=== PATIENT | male | born 1955 | race African-American/Black ===

== ENCOUNTER 2017-05-29 18:47 | Inpatient (IN) ==
[2017-05-29 20:15] LABS: Basophils % 0.5 % (0.0-0.8); Eosinophils # 0.1 10*3/uL (0.0-0.87); Eosinophils % 1.3 % (0.00-10.9); Hematocrit 47.1 VOL% (42.0-52.0); Hemoglobin 14.9 GM/DL (14.0-18.0); Immature Granulocytes % 0.8 %; Immature Granulocytes Absolute 0.07 #; Lymphocytes # 0.5 10*3/uL (1.4-4.0); Lymphocytes % 5.6 % (21.2-54.2); Mean Corpuscular HGB Conc 31.6 GM/DL (32-36); Mean Corpuscular Hemoglobin 27 PG (27-34); Mean Corpuscular Volume 86.7 FL (87-102); Mean Platelet Volume 10.4 FL (9.6-12.0); Monocytes # 0.8 10*3/uL (0.11-0.8); Monocytes % 9.7 % (1.7-12.7); Neutrophils # 7.1 10*3/uL (1.4-7.4); Neutrophils % 82.1 % (38.7-73.9); Platelet Count 205 T/CUMM (130-400); Red Blood Count 5.43 MC/CUMM (3.8-5.5); Red Cell Distribution Width 15.5 % (9.3-17.3); White Blood Count 8.6 T/CUMM (4-12)
[2017-05-29 20:21] LABS: PT Patient Result 10.9 SECS; Partial Thromboplastin Time 27.5 SECS (0-40)
[2017-05-29] MEDS ORDERED: ALBUTEROL 2.5 MG/3 ML NEB RESP TX STA (20:25)
[2017-05-29 20:28] LABS: Albumin 3.6 G/DL (3.4-5.0); Bilirubin,Total 0.5 MG/DL (0.2-1.0); Calcium 8.6 MG/DL (8.5-10.1); Potassium 4.8 MMOL/L (3.5-5.1); Total Protein 7.8 G/DL (6.4-8.3); Troponin I Only < 0.015 NG/ML (0.00-0.045)
[2017-05-29] MEDS ORDERED: ALBUTEROL 2.5 MG/3 ML NEB RESP TX ONE (20:41)
[2017-05-29] MEDS ORDERED: methylPREDNISolone SOD SUC 125 MG/2 ML VIAL IV STA (23:36)
[2017-05-29] MEDS ORDERED: methylPREDNISolone SOD SUC 125 MG/2 ML VIAL ONE (23:44)
[2017-05-29] MEDS ORDERED: AZITHROMYCIN INJ 500 MG in SODIUM CHLORIDE 0.9% 250 ML IV STA (23:45)
[2017-05-29] MEDS ORDERED: cefTRIAXone 1,000 MG in SODIUM CHLORIDE 0.9% 100 ML IV STA (23:45)
[2017-05-29] MEDS ORDERED: cefTRIAXone 1,000 MG VIAL ONE (23:49)
[2017-05-29] MEDS ORDERED: AZITHROMYCIN 500 MG VIAL IV ONE (23:57)
[2017-05-30] MEDS ORDERED: ALBUTEROL 2.5 MG/3 ML NEB RESP TX PRN (02:36)
[2017-05-30] MEDS ORDERED: traMADol 50 MG TABLET PO PRN (04:54)
[2017-05-30] MEDS ORDERED: FUROSEMIDE 40 MG TABLET PO PRN (04:54)
[2017-05-30] MEDS ORDERED: POTASSIUM CHLORIDE 20 MEQ TABLET PO PRN (04:54)
[2017-05-30] MEDS ORDERED: ACETAMINOPHEN 325 MG TABLET PO PRN (04:54)
[2017-05-30] MEDS ORDERED: COLCHICINE 0.6 MG TABLET PO PRN (04:54)
[2017-05-30] MEDS: ENOXAPARIN 40 MG/0.4 ML SYRINGE SUBCUT SCH (06:41)
[2017-05-30] MEDS: ALBUTEROL/IPRATROPIUM 3 ML NEB RESP TX SCH ×3 (07:25→20:02)
[2017-05-30] MEDS: DILTIAZEM CD 240 MG CAPSULE PO SCH (09:20)
[2017-05-30] MEDS: methylPREDNISolone SOD SUC 125 MG/2 ML VIAL IV SCH ×3 (09:20→21:45)
[2017-05-30] MEDS: PANTOPRAZOLE 40 MG TABLET PO SCH (09:20)
[2017-05-30] MEDS: BUDESONIDE/FORMOTEROL 160-4.5 INHALER 6 GM INH SCH ×2 (09:25→21:45)
[2017-05-30] MEDS: TAMSULOSIN 0.4 MG CAPSULE PO SCH (17:20)
[2017-05-30] MEDS: MONTELUKAST 10 MG TABLET PO SCH (21:46)
[2017-05-30] MEDS ORDERED: AZITHROMYCIN INJ 500 MG in SODIUM CHLORIDE 0.9% 250 ML IV SCH (22:00)
[2017-05-31] MEDS: cefTRIAXone 1,000 MG in SYRINGE 1 EACH IV SCH ×2 (00:07→21:29)
[2017-05-31] MEDS: ALBUTEROL/IPRATROPIUM 3 ML NEB RESP TX SCH ×4 (01:12→20:49)
[2017-05-31] MEDS: methylPREDNISolone SOD SUC 125 MG/2 ML VIAL IV SCH ×3 (05:07→18:06)
[2017-05-31] MEDS: ENOXAPARIN 40 MG/0.4 ML SYRINGE SUBCUT SCH (05:08)
[2017-05-31 06:42] LABS: Basophils % 0.1 % (0.0-0.8); Hematocrit 45.3 VOL% (42.0-52.0); Hemoglobin 14.2 GM/DL (14.0-18.0); Immature Granulocytes % 0.8 %; Lymphocytes # 0.8 10*3/uL (1.4-4.0); Lymphocytes % 6.2 % (21.2-54.2); Mean Corpuscular HGB Conc 31.3 GM/DL (32-36); Mean Corpuscular Hemoglobin 27 PG (27-34); Mean Corpuscular Volume 86.6 FL (87-102); Mean Platelet Volume 10.4 FL (9.6-12.0); Monocytes % 7.5 % (1.7-12.7); Neutrophils % 85.4 % (38.7-73.9); Platelet Count 212 T/CUMM (130-400); Red Blood Count 5.23 MC/CUMM (3.8-5.5); Red Cell Distribution Width 15.5 % (9.3-17.3); White Blood Count 12.9 T/CUMM (4-12)
[2017-05-31 07:08] LABS: Band Neutrophils 2 % (0-10); Giant Platelets Few; Hypochromasia 1+; Lymphocytes 7 % (20-55); Microcytosis Slight; Platelet Estimate Adequate; Segmented Neutrophils 79 % (50-85); Total Cells Counted 100
[2017-05-31 07:12] LABS: Alanine Aminotransferase 29 U/L (16-61); Albumin 3.4 G/DL (3.4-5.0); Alkaline Phosphatase 65 U/L (45-117); Aspartate Amino Transferase 23 U/L (0-37); Bilirubin,Total < 0.39 MG/DL (0.2-1.0); Blood Urea Nitrogen 19 MG/DL (7-18); Calcium 8.8 MG/DL (8.5-10.1); Glucose 123 MG/DL (74-106); Osmolality,Calculated 279.5 MOS/KG (273-304); Potassium 4.3 MMOL/L (3.5-5.1); Sodium 139 MMOL/L (136-145); Total Protein 7.3 G/DL (6.4-8.3)
[2017-05-31] MEDS: PANTOPRAZOLE 40 MG TABLET PO SCH (09:49)
[2017-05-31] MEDS: DILTIAZEM CD 240 MG CAPSULE PO SCH (09:49)
[2017-05-31] MEDS: BUDESONIDE/FORMOTEROL 160-4.5 INHALER 6 GM INH SCH ×2 (09:55→21:29)
[2017-05-31 11:23] LABS: ABG Base Excess -0.1 MMOL/L (-2.5-2.5); ABG HCO3 24.3 MMOL/L (20-26); ABG Oxygen Saturation 95.2 % (95-100); ABG PCO2 39.8 MM HG (35-48); ABG PO2 72.7 MM HG (80-95); ABG TCO2 21.1 MMOL/L (23-27); Allen Test Positive; Pt O2 Delivery Device Room Air
[2017-05-31] MEDS: TAMSULOSIN 0.4 MG CAPSULE PO SCH (18:06)
[2017-05-31] MEDS ORDERED: AZITHROMYCIN 250 MG TABLET PO SCH (21:00)
[2017-05-31] MEDS: MONTELUKAST 10 MG TABLET PO SCH (21:30)
[2017-06-01] MEDS: ALBUTEROL/IPRATROPIUM 3 ML NEB RESP TX SCH ×2 (02:04→08:35)
[2017-06-01] MEDS: methylPREDNISolone SOD SUC 125 MG/2 ML VIAL IV SCH ×3 (02:18→11:41)
[2017-06-01] MEDS: ENOXAPARIN 40 MG/0.4 ML SYRINGE SUBCUT SCH (05:27)
[2017-06-01] MEDS: DILTIAZEM CD 240 MG CAPSULE PO SCH (08:56)
[2017-06-01] MEDS: PANTOPRAZOLE 40 MG TABLET PO SCH (08:56)
[2017-06-01] MEDS: BUDESONIDE/FORMOTEROL 160-4.5 INHALER 6 GM INH SCH (08:56)
[2017-06-01 11:58] VITALS: BP 135/58
== END 2017-06-01 14:35 | disposition home or self-care (01) | DRG 194 ==
LOC: EDUNIT# → EDBD → N.ED 18:47 → N.EDINP 05-30 02:44 → N.5E 05-30 03:09

== ENCOUNTER 2019-02-26 14:57 | Inpatient (IN) ==
[2019-02-26] MEDS ORDERED: AZITHROMYCIN INJ 500 MG in SODIUM CHLORIDE 0.9% 250 ML IV STA (16:04)
[2019-02-26] MEDS ORDERED: methylPREDNISolone SOD SUC 125 MG/2 ML VIAL IV STA (16:04)
[2019-02-26] MEDS ORDERED: ONDANSETRON 4 MG/2 ML VIAL IV STA (16:04)
[2019-02-26 16:23] LABS: Basophils % 0.2 % (0.0-0.8); Hematocrit 46.6 VOL% (42.0-52.0); Hemoglobin 14.7 GM/DL (14.0-18.0); Immature Granulocytes % 0.7 %; Immature Granulocytes Absolute 0.07 #; Lymphocytes # 1.2 10*3/uL (1.4-4.0); Lymphocytes % 12.1 % (21.2-54.2); Mean Corpuscular HGB Conc 31.5 GM/DL (32-36); Mean Corpuscular Volume 87.8 FL (87-102); Mean Platelet Volume 10.7 FL (9.6-12.0); Monocytes % 14.5 % (1.7-12.7); Neutrophils % 72.5 % (38.7-73.9); Platelet Count 227 T/CUMM (130-400); Red Blood Count 5.31 MC/CUMM (3.8-5.5); Red Cell Distribution Width 14.5 % (9.3-17.3); White Blood Count 9.9 T/CUMM (4-12)
[2019-02-26] MEDS: TERBUTALINE 1 MG/1 ML VIAL SUBCUT SCH ×2 (16:23→16:56)
[2019-02-26 16:26] LABS: INR 1.1; PT Patient Result 11.5 SECS (9.6-12.2); Partial Thromboplastin Time 27.1 SECS (20.8-36.0)
[2019-02-26 16:34] LABS: Alanine Aminotransferase 29 U/L (16-61); Albumin 3.1 G/DL (3.4-5.0); Alkaline Phosphatase 79 U/L (45-117); Aspartate Amino Transferase 22 U/L (0-37); Bilirubin,Total < 0.39 MG/DL (0.2-1.0); Blood Urea Nitrogen 15 MG/DL (7-18); Calcium 9.2 MG/DL (8.5-10.1); Estimated Glom Filtration Rate 111 ML/MIN; Glucose 101 MG/DL (74-106); Osmolality,Calculated 281.3 MOS/KG (273-304); Total Protein 7.9 G/DL (6.4-8.3); Troponin I < 0.015 NG/ML (0.00-0.045)
[2019-02-26] MEDS ORDERED: FUROSEMIDE 40 MG/4 ML VIAL IV STA (16:34)
[2019-02-26 16:55] LABS: ABG Base Excess 1.3 MMOL/L (-2.5-2.5); ABG HCO3 25.9 MMOL/L (20-26); ABG PCO2 40.8 MM HG (35-48); ABG PO2 90.9 MM HG (80-95); ABG TCO2 27.1 MMOL/L (23-27)
[2019-02-26] MEDS ORDERED: ALBUTEROL/IPRATROPIUM 3 ML NEB RESP TX STA (17:11)
[2019-02-26] MEDS ORDERED: MAGNESIUM SULF RIDER 2 GM in PREMIX 1 EACH IV PRN (17:30)
[2019-02-26] MEDS ORDERED: ACETAMINOPHEN 325 MG TABLET PO PRN (17:30)
[2019-02-26] MEDS ORDERED: MAGNESIUM SULF RIDER 4 GM in PREMIX 1 EACH IV PRN (17:30)
[2019-02-26] MEDS ORDERED: POTASSIUM CHLORIDE RIDER 10 MEQ in PREMIX 1 EACH IV PRN (17:30)
[2019-02-26] MEDS ORDERED: INDOMETHACIN 25 MG CAPSULE PO PRN (17:43)
[2019-02-26] MEDS: ALBUTEROL/IPRATROPIUM 3 ML NEB RESP TX SCH (19:27)
[2019-02-26] MEDS: LEVOFLOXACIN INJ 750 MG in PREMIX 1 EACH IV SCH (20:44)
[2019-02-26] MEDS: HEPARIN 5,000 UNIT/1 ML VIAL SUBCUT SCH (22:38)
[2019-02-27] MEDS: ALBUTEROL/IPRATROPIUM 3 ML NEB RESP TX SCH ×4 (00:06→19:51)
[2019-02-27] MEDS: methylPREDNISolone SOD SUC 40 MG/1 ML VIAL IV SCH ×3 (01:49→18:03)
[2019-02-27 04:49] LABS: Basophils % 0.2 % (0.0-0.8); Hematocrit 46.5 VOL% (42.0-52.0); Hemoglobin 14.8 GM/DL (14.0-18.0); Immature Granulocytes Absolute 0.12 #; Lymphocytes # 0.9 10*3/uL (1.4-4.0); Lymphocytes % 7.4 % (21.2-54.2); Mean Corpuscular HGB Conc 31.8 GM/DL (32-36); Mean Corpuscular Volume 88.9 FL (87-102); Mean Platelet Volume 10.8 FL (9.6-12.0); Monocytes % 7.3 % (1.7-12.7); Neutrophils % 84.1 % (38.7-73.9); Platelet Count 223 T/CUMM (130-400); Red Blood Count 5.23 MC/CUMM (3.8-5.5); Red Cell Distribution Width 14.6 % (9.3-17.3); White Blood Count 11.8 T/CUMM (4-12)
[2019-02-27 05:35] LABS: Alanine Aminotransferase 27 U/L (16-61); Albumin 3.2 G/DL (3.4-5.0); Alkaline Phosphatase 71 U/L (45-117); Aspartate Amino Transferase 19 U/L (0-37); Bilirubin,Total < 0.39 MG/DL (0.2-1.0); Blood Urea Nitrogen 17 MG/DL (7-18); Estimated Glom Filtration Rate 101 ML/MIN; Glucose 142 MG/DL (74-106); HDL Cholesterol 45 MG/DL (40-60); Osmolality,Calculated 284.3 MOS/KG (273-304); Risk Ratio 3.98; Total Protein 7.7 G/DL (6.4-8.3); Triglycerides 68 MG/DL (2-150); VLDL CHOLESTEROL 13.6 MG/DL
[2019-02-27] MEDS: HEPARIN 5,000 UNIT/1 ML VIAL SUBCUT SCH ×2 (05:43→15:34)
[2019-02-27] MEDS ORDERED: GLUCAGON 1 MG VIAL IM PRN (08:45)
[2019-02-27] MEDS ORDERED: DEXTROSE 50% 25 GM/50 ML VIAL IV PRN (08:45)
[2019-02-27] MEDS: FUROSEMIDE 40 MG/4 ML VIAL IV SCH ×2 (09:10→15:33)
[2019-02-27] MEDS: ALLOPURINOL 100 MG TABLET PO SCH (09:11)
[2019-02-27] MEDS: PANTOPRAZOLE 40 MG TABLET PO SCH (09:11)
[2019-02-27] MEDS: CARVEDILOL 3.125 MG TABLET PO SCH ×2 (10:26→20:32)
[2019-02-27] MEDS: ASPIRIN EC 81 MG TABLET PO SCH (10:26)
[2019-02-27] MEDS: INSULIN REGULAR 100 UNIT/ML SUBCUT SCH ×3 (12:27→22:23)
[2019-02-27 16:12] LABS: Apearance,Urine CLEAR (Clear); Bilirubin,Urine Negative (Negative); Blood, Urine Negative (Negative); Glucose,Urine (UA) Negative (Negative); Ketones,Urine Negative (Negative); Nitrite,Urine Negative (Negative); Protein,Urine Negative; RBC,Urine 4 /HPF (0-4); Squamous Epithelial Cell,Urine Occasional /HPF (0-10); Urine Color Yellow (Yellow); Urine Specific Gravity 1.027 (1.001-1.035); Urine Urobilinogen < 2.0 EU/DL (0.2-1.0); WBC,Urine 2 /HPF (0-6)
[2019-02-27 16:18] LABS: Barbiturates Screen,Urine Negative (Negative); Benzodiazepines Screen,Urine Negative (Negative); Cannabinoid Screen,Urine Negative (Negative); Opiate Screen,Urine Positive (Negative); Phencyclidine Screen,Urine Negative (Negative)
[2019-02-27] MEDS: LEVOFLOXACIN INJ 750 MG in PREMIX 1 EACH IV SCH (20:32)
[2019-02-27] MEDS ORDERED: ROSUVASTATIN 20 MG TABLET PO SCH ×2 (21:00)
[2019-02-28] MEDS: HEPARIN 5,000 UNIT/1 ML VIAL SUBCUT SCH ×2 (00:53→05:44)
[2019-02-28] MEDS: methylPREDNISolone SOD SUC 40 MG/1 ML VIAL IV SCH (00:53)
[2019-02-28] MEDS: ALBUTEROL/IPRATROPIUM 3 ML NEB RESP TX SCH ×3 (01:50→12:15)
[2019-02-28 05:26] LABS: Basophils % 0.1 % (0.0-0.8); Hematocrit 49.2 VOL% (42.0-52.0); Hemoglobin 15.5 GM/DL (14.0-18.0); Immature Granulocytes % 1.1 %; Immature Granulocytes Absolute 0.18 #; Lymphocytes # 1.2 10*3/uL (1.4-4.0); Lymphocytes % 7.6 % (21.2-54.2); Mean Corpuscular HGB Conc 31.5 GM/DL (32-36); Mean Corpuscular Volume 89.1 FL (87-102); Mean Platelet Volume 10.9 FL (9.6-12.0); Neutrophils % 86.2 % (38.7-73.9); Platelet Count 247 T/CUMM (130-400); Red Blood Count 5.52 MC/CUMM (3.8-5.5); Red Cell Distribution Width 14.9 % (9.3-17.3); White Blood Count 16.1 T/CUMM (4-12)
[2019-02-28 05:46] LABS: Albumin 3.3 G/DL (3.4-5.0); Bilirubin,Total 0.5 MG/DL (0.2-1.0); Calcium 9.1 MG/DL (8.5-10.1); Osmolality,Calculated 279.7 MOS/KG (273-304); Total Protein 7.9 G/DL (6.4-8.3)
[2019-02-28] MEDS: INSULIN REGULAR 100 UNIT/ML SUBCUT SCH ×2 (08:50→12:31)
[2019-02-28] MEDS: ALLOPURINOL 100 MG TABLET PO SCH (08:51)
[2019-02-28] MEDS: ASPIRIN EC 81 MG TABLET PO SCH (08:51)
[2019-02-28] MEDS: FUROSEMIDE 40 MG/4 ML VIAL IV SCH (08:51)
[2019-02-28] MEDS: CARVEDILOL 3.125 MG TABLET PO SCH (08:52)
[2019-02-28] MEDS: PANTOPRAZOLE 40 MG TABLET PO SCH (08:52)
[2019-02-28] MEDS ORDERED: LISINOPRIL 10 MG TABLET PO SCH (09:40)
[2019-02-28 12:29] VITALS: BP 121/72
== END 2019-02-28 13:18 | disposition home health service (06) | DRG 194 ==
LOC: N.ED 14:57 → N.EDINP 17:30 → N.5E 19:28

== ENCOUNTER 2019-04-24 09:38 | Inpatient (IN) ==
[2019-04-24] MEDS ORDERED: MAGNESIUM SULF RIDER 2 GM in PREMIX 1 EACH IV PRN (10:11)
[2019-04-24] MEDS ORDERED: diphenhydrAMINE CAP 25 MG CAPSULE PO ONE (10:11)
[2019-04-24] MEDS ORDERED: POTASSIUM CHLORIDE RIDER 10 MEQ in PREMIX 1 EACH IV PRN (10:11)
[2019-04-24] MEDS ORDERED: ASPIRIN 325 MG TABLET PO ONE (10:11)
[2019-04-24] MEDS ORDERED: DIAZEPAM 5 MG TABLET PO ONE (10:11)
[2019-04-24] MEDS ORDERED: ASPIRIN 325 MG TABLET ONE (10:13)
[2019-04-24] MEDS ORDERED: DIAZEPAM 5 MG TABLET ONE (10:14)
[2019-04-24] MEDS ORDERED: diphenhydrAMINE CAP 25 MG CAPSULE ONE (10:14)
[2019-04-24] MEDS: SODIUM CHLORIDE 0.9% 1,000 ML IV SCH (10:21)
[2019-04-24 10:42] LABS: Basophils # 0.1 10*3/uL (0.0-0.2); Basophils % 0.7 % (0.0-0.8); Eosinophils # 0.2 10*3/uL (0.0-0.87); Eosinophils % 3.1 % (0.00-10.9); Hematocrit 45.9 VOL% (42.0-52.0); Hemoglobin 14.7 GM/DL (14.0-18.0); Immature Granulocytes % 0.4 %; Immature Granulocytes Absolute 0.03 #; Lymphocytes # 1.8 10*3/uL (1.4-4.0); Lymphocytes % 24.8 % (21.2-54.2); Mean Corpuscular Volume 89.8 FL (87-102); Mean Platelet Volume 10.5 FL (9.6-12.0); Monocytes % 10.8 % (1.7-12.7); Neutrophils % 60.2 % (38.7-73.9); Platelet Count 208 T/CUMM (130-400); Red Blood Count 5.11 MC/CUMM (3.8-5.5); Red Cell Distribution Width 14.4 % (9.3-17.3); White Blood Count 7.1 T/CUMM (4-12)
[2019-04-24 10:52] LABS: PT Patient Result 11.1 SECS (9.6-12.2)
[2019-04-24 11:05] LABS: Osmolality,Calculated 279.4 MOS/KG (273-304)
[2019-04-24] MEDS ORDERED: NITROGLYCERIN DRIP 50 MG/250 ML BOTTLE IV ONE (12:54)
[2019-04-24] MEDS ORDERED: LIDOCAINE 1% 20 ML VIAL ONE (12:54)
[2019-04-24] MEDS ORDERED: HEPARIN/NACL 0.9% 2 UNITS/ML 1,000 ML IV ONE ×2 (12:54→13:31)
[2019-04-24] MEDS ORDERED: VERAPAMIL 5 MG/2 ML VIAL ONE ×2 (12:54→13:45)
[2019-04-24] MEDS ORDERED: fentaNYL 100 MCG/2 ML VIAL ONE (13:06)
[2019-04-24] MEDS ORDERED: MIDAZOLAM 2 MG/2 ML VIAL ONE (13:06)
[2019-04-24] MEDS ORDERED: HEPARIN 5,000 UNIT/1 ML VIAL ONE (13:07)
[2019-04-24] MEDS ORDERED: LABETALOL 20 MG/4 ML SYRINGE IV ONE (13:43)
[2019-04-24] MEDS ORDERED: hydrALAZINE 20 MG/1 ML VIAL ONE (13:50)
[2019-04-24] MEDS ORDERED: INDOMETHACIN 25 MG CAPSULE PO PRN (14:25)
[2019-04-24] MEDS ORDERED: ALBUTEROL 0.63 MG/3 ML NEB RESP TX PRN (14:25)
[2019-04-24] MEDS ORDERED: diphenhydrAMINE CAP 25 MG CAPSULE PO PRN (14:25)
[2019-04-24] MEDS ORDERED: SODIUM CHLORIDE 0.9% 1,000 ML IV SCH (14:30)
[2019-04-24] MEDS ORDERED: LEVOFLOXACIN INJ 750 MG in PREMIX 1 EACH IV SCH (16:30)
[2019-04-24] MEDS ORDERED: SODIUM POLYSTYRENE SULFATE 15 GM/60 ML BOTTLE PO SCH (21:00)
[2019-04-24] MEDS: ROSUVASTATIN 10 MG TABLET PO SCH (21:20)
[2019-04-24] MEDS: FLUTICASONE/SALMETEROL 250-50 DISKUS 14 DOSE INH SCH (21:20)
[2019-04-24] MEDS: FUROSEMIDE 40 MG TABLET PO SCH (21:21)
[2019-04-24] MEDS: carvediloL 3.125 MG TABLET PO SCH (21:22)
[2019-04-25 08:11] LABS: Basophils # 0.1 10*3/uL (0.0-0.2); Basophils % 0.7 % (0.0-0.8); Eosinophils # 0.2 10*3/uL (0.0-0.87); Eosinophils % 2.4 % (0.00-10.9); Hematocrit 44.4 VOL% (42.0-52.0); Hemoglobin 14.2 GM/DL (14.0-18.0); Immature Granulocytes % 0.5 %; Immature Granulocytes Absolute 0.04 #; Lymphocytes % 26.4 % (21.2-54.2); Mean Corpuscular Volume 88.6 FL (87-102); Mean Platelet Volume 10.4 FL (9.6-12.0); Monocytes % 10.9 % (1.7-12.7); Neutrophils % 59.1 % (38.7-73.9); Platelet Count 206 T/CUMM (130-400); Red Blood Count 5.01 MC/CUMM (3.8-5.5); Red Cell Distribution Width 14.3 % (9.3-17.3); White Blood Count 7.4 T/CUMM (4-12)
[2019-04-25 08:26] LABS: Calcium 8.9 MG/DL (8.5-10.1); Osmolality,Calculated 275.5 MOS/KG (273-304)
[2019-04-25] MEDS: LISINOPRIL 10 MG TABLET PO SCH (09:07)
[2019-04-25] MEDS: FUROSEMIDE 40 MG TABLET PO SCH ×2 (09:07→22:38)
[2019-04-25] MEDS: carvediloL 3.125 MG TABLET PO SCH ×2 (09:07→22:38)
[2019-04-25] MEDS: ASPIRIN EC 81 MG TABLET PO SCH (09:07)
[2019-04-25] MEDS: FLUTICASONE/SALMETEROL 250-50 DISKUS 14 DOSE INH SCH ×2 (09:09→22:39)
[2019-04-25] MEDS: SODIUM CHLORIDE 0.9% 1,000 ML IV SCH (10:33)
[2019-04-25] MEDS: LEVOFLOXACIN 750 MG TABLET PO SCH (11:36)
[2019-04-25] MEDS ORDERED: BENZONATATE 100 MG CAPSULE PO PRN (12:56)
[2019-04-25] MEDS: BENZONATATE 100 MG CAPSULE PO SCH ×2 (13:16→22:38)
[2019-04-25] MEDS: TROLAMINE SALICYLATE 10% CREAM 85 GM TUBE TOP PRN ×2 (13:17→22:44)
[2019-04-25] MEDS: methylPREDNISolone 4 MG TABLET PO SCH (16:49)
[2019-04-25] MEDS: ROSUVASTATIN 10 MG TABLET PO SCH (22:42)
[2019-04-26 06:35] LABS: Basophils % 0.2 % (0.0-0.8); Hemoglobin 15.3 GM/DL (14.0-18.0); Immature Granulocytes % 0.6 %; Immature Granulocytes Absolute 0.06 #; Lymphocytes # 0.9 10*3/uL (1.4-4.0); Lymphocytes % 8.5 % (21.2-54.2); Mean Corpuscular HGB Conc 32.6 GM/DL (32-36); Mean Corpuscular Volume 87.4 FL (87-102); Mean Platelet Volume 10.6 FL (9.6-12.0); Monocytes % 5.3 % (1.7-12.7); Neutrophils % 85.4 % (38.7-73.9); Platelet Count 243 T/CUMM (130-400); Red Blood Count 5.38 MC/CUMM (3.8-5.5); Red Cell Distribution Width 14.1 % (9.3-17.3); White Blood Count 10.8 T/CUMM (4-12)
[2019-04-26 07:02] LABS: Calcium 9.3 MG/DL (8.5-10.1); Osmolality,Calculated 280.4 MOS/KG (273-304)
[2019-04-26] MEDS: ASPIRIN EC 81 MG TABLET PO SCH (09:48)
[2019-04-26] MEDS: BENZONATATE 100 MG CAPSULE PO SCH ×2 (09:48→22:46)
[2019-04-26] MEDS: LEVOFLOXACIN 750 MG TABLET PO SCH (09:48)
[2019-04-26] MEDS: FUROSEMIDE 40 MG TABLET PO SCH ×2 (09:48→22:46)
[2019-04-26] MEDS: carvediloL 3.125 MG TABLET PO SCH ×2 (09:48→22:46)
[2019-04-26] MEDS: LISINOPRIL 10 MG TABLET PO SCH (09:49)
[2019-04-26] MEDS: methylPREDNISolone 4 MG TABLET PO SCH (09:49)
[2019-04-26] MEDS: FLUTICASONE/SALMETEROL 250-50 DISKUS 14 DOSE INH SCH ×2 (09:51→22:47)
[2019-04-26] MEDS: ROSUVASTATIN 10 MG TABLET PO SCH (22:46)
[2019-04-27 03:49] VITALS: BP 117/85
[2019-04-27 05:57] LABS: Basophils % 0.2 % (0.0-0.8); Eosinophils % 0.1 % (0.00-10.9); Hematocrit 46.1 VOL% (42.0-52.0); Hemoglobin 14.9 GM/DL (14.0-18.0); Immature Granulocytes % 0.5 %; Lymphocytes # 1.9 10*3/uL (1.4-4.0); Lymphocytes % 10.4 % (21.2-54.2); Mean Corpuscular HGB Conc 32.3 GM/DL (32-36); Mean Corpuscular Volume 87.8 FL (87-102); Mean Platelet Volume 10.8 FL (9.6-12.0); Monocytes % 7.3 % (1.7-12.7); Neutrophils % 81.5 % (38.7-73.9); Platelet Count 244 T/CUMM (130-400); Red Blood Count 5.25 MC/CUMM (3.8-5.5); Red Cell Distribution Width 14.3 % (9.3-17.3); White Blood Count 18.2 T/CUMM (4-12)
[2019-04-27 06:15] LABS: Calcium 9.3 MG/DL (8.5-10.1); Osmolality,Calculated 280.4 MOS/KG (273-304)
== END 2019-04-27 08:05 | disposition home or self-care (01) | DRG 194 ==
LOC: N.CL 09:38 → N.TELES 14:23
PROVIDERS: ADMIT Internal Medicine Cardiovascular Disease; ATTEND Internal Medicine Cardiovascular Disease
PROC: CLCCHCL (ICD-10-PCS; 2019-04-24 12:45)

== ENCOUNTER 2021-12-29 13:17 | Observation (INO) ==
[2021-12-29 16:18] LABS: Basophils # 0.1 10*3/uL (0.0-0.2); Eosinophils # 0.3 10*3/uL (0.0-0.87); Eosinophils % 3.7 % (0.00-10.9); Hematocrit 47.2 VOL% (42.0-52.0); Hemoglobin 14.8 GM/DL (14.0-18.0); Immature Granulocytes % 0.5 %; Immature Granulocytes Absolute 0.05 #; Lymphocytes % 21.3 % (21.2-54.2); Mean Corpuscular HGB Conc 31.4 GM/DL (32-36); Mean Corpuscular Volume 89.9 FL (87-102); Mean Platelet Volume 10.1 FL (9.6-12.0); Monocytes # 1.2 10*3/uL (0.11-0.8); Monocytes % 12.6 % (1.7-12.7); Neutrophils % 60.9 % (38.7-73.9); Platelet Count 200 T/CUMM (130-400); Red Blood Count 5.25 MC/CUMM (3.8-5.5); Red Cell Distribution Width 14.4 % (9.3-17.3); White Blood Count 9.3 T/CUMM (4-12)
[2021-12-29 16:35] LABS: Bilirubin,Total 0.4 MG/DL (0.20-1.00); Calcium 8.7 MG/DL (8.5-10.1); Osmolality,Calculated 283.1 MOS/KG (273-304); Potassium 4.3 MMOL/L (3.5-5.1); Total Protein 7.4 G/DL (6.4-8.2)
[2021-12-29] MEDS ORDERED: AZITHROMYCIN INJ 500 MG in SODIUM CHLORIDE 0.9% 250 ML IV STA (17:38)
[2021-12-29] MEDS ORDERED: GLUCAGON 1 MG VIAL IM PRN (18:12)
[2021-12-29] MEDS ORDERED: NICOTINE 21 MG/24 HR PATCH TRANSDERM PRN (18:12)
[2021-12-29] MEDS ORDERED: diphenhydrAMINE CAP 25 MG CAPSULE PO PRN (18:12)
[2021-12-29] MEDS ORDERED: ZALEPLON 5 MG CAPSULE PO PRN (18:12)
[2021-12-29] MEDS ORDERED: hydrALAZINE 20 MG/1 ML VIAL IV PRN (18:12)
[2021-12-29] MEDS ORDERED: ACETAMINOPHEN 325 MG TABLET PO PRN (18:12)
[2021-12-29] MEDS ORDERED: ONDANSETRON 4 MG/2 ML VIAL IV PRN (18:12)
[2021-12-29] MEDS ORDERED: DEXTROSE 10% 250 ML BAG IV PRN (18:25)
[2021-12-29] MEDS: ALBUTEROL/IPRATROPIUM 3 ML NEB RESP TX SCH (18:47)
[2021-12-29] MEDS: cefTRIAXone 1,000 MG in SODIUM CHLORIDE 0.9% 100 ML IV SCH (20:15)
[2021-12-29] MEDS: HEPARIN 5,000 UNIT/1 ML VIAL SUBCUT SCH (21:23)
[2021-12-30] MEDS: ALBUTEROL/IPRATROPIUM 3 ML NEB RESP TX SCH ×4 (00:35→19:30)
[2021-12-30 05:40] LABS: Basophils # 0.1 10*3/uL (0.0-0.2); Eosinophils # 0.4 10*3/uL (0.0-0.87); Eosinophils % 3.8 % (0.00-10.9); Hematocrit 49.4 VOL% (42.0-52.0); Hemoglobin 15.3 GM/DL (14.0-18.0); Immature Granulocytes % 0.4 %; Immature Granulocytes Absolute 0.04 #; Lymphocytes # 2.5 10*3/uL (1.4-4.0); Lymphocytes % 26.4 % (21.2-54.2); Mean Corpuscular Volume 90.8 FL (87-102); Mean Platelet Volume 10.2 FL (9.6-12.0); Monocytes # 1.1 10*3/uL (0.11-0.8); Monocytes % 11.8 % (1.7-12.7); Neutrophils % 56.6 % (38.7-73.9); Platelet Count 206 T/CUMM (130-400); Red Blood Count 5.44 MC/CUMM (3.8-5.5); Red Cell Distribution Width 14.4 % (9.3-17.3); White Blood Count 9.5 T/CUMM (4-12)
[2021-12-30 06:00] LABS: Calcium 9.1 MG/DL (8.5-10.1); Osmolality,Calculated 283.1 MOS/KG (273-304); Potassium 3.9 MMOL/L (3.5-5.1)
[2021-12-30] MEDS: ASPIRIN EC 81 MG TABLET PO SCH (09:03)
[2021-12-30] MEDS: carvediloL 3.125 MG TABLET PO SCH ×2 (09:03→20:40)
[2021-12-30] MEDS: BISACODYL 5 MG TABLET PO SCH (09:03)
[2021-12-30] MEDS: PANTOPRAZOLE 40 MG TABLET PO SCH (09:05)
[2021-12-30] MEDS: POTASSIUM CHLORIDE 10 MEQ TABLET PO SCH ×2 (09:05→20:42)
[2021-12-30] MEDS: HEPARIN 5,000 UNIT/1 ML VIAL SUBCUT SCH ×2 (09:05→20:42)
[2021-12-30] MEDS: guaiFENesin/DM ER 600-30 MG TABLET PO PRN (09:05)
[2021-12-30] MEDS: FUROSEMIDE 40 MG TABLET PO SCH ×2 (09:05→20:42)
[2021-12-30] MEDS: lisinopriL 10 MG TABLET PO SCH (09:05)
[2021-12-30] MEDS: AZITHROMYCIN 250 MG TABLET PO SCH (15:10)
[2021-12-30] MEDS: cefTRIAXone 1,000 MG in SODIUM CHLORIDE 0.9% 100 ML IV SCH (20:41)
[2021-12-30] MEDS: ROSUVASTATIN 20 MG TABLET PO SCH (20:51)
[2021-12-31] MEDS: ALBUTEROL/IPRATROPIUM 3 ML NEB RESP TX SCH ×4 (00:20→19:32)
[2021-12-31 06:10] LABS: Basophils # 0.1 10*3/uL (0.0-0.2); Basophils % 0.6 % (0.0-0.8); Eosinophils # 0.3 10*3/uL (0.0-0.87); Eosinophils % 3.9 % (0.00-10.9); Hematocrit 45.6 VOL% (42.0-52.0); Hemoglobin 14.2 GM/DL (14.0-18.0); Immature Granulocytes % 0.5 %; Immature Granulocytes Absolute 0.04 #; Mean Corpuscular HGB Conc 31.1 GM/DL (32-36); Mean Corpuscular Volume 90.7 FL (87-102); Mean Platelet Volume 10.2 FL (9.6-12.0); Monocytes # 0.8 10*3/uL (0.11-0.8); Monocytes % 9.6 % (1.7-12.7); Neutrophils % 61.4 % (38.7-73.9); Platelet Count 168 T/CUMM (130-400); Red Blood Count 5.03 MC/CUMM (3.8-5.5); Red Cell Distribution Width 14.3 % (9.3-17.3); White Blood Count 8.1 T/CUMM (4-12)
[2021-12-31 06:26] LABS: Calcium 8.8 MG/DL (8.5-10.1); Osmolality,Calculated 273.7 MOS/KG (273-304); Potassium 3.8 MMOL/L (3.5-5.1)
[2021-12-31] MEDS: BISACODYL 5 MG TABLET PO SCH (09:21)
[2021-12-31] MEDS: PANTOPRAZOLE 40 MG TABLET PO SCH (09:22)
[2021-12-31] MEDS: FUROSEMIDE 40 MG TABLET PO SCH ×2 (09:22→21:17)
[2021-12-31] MEDS: POTASSIUM CHLORIDE 10 MEQ TABLET PO SCH ×2 (09:22→21:17)
[2021-12-31] MEDS: AZITHROMYCIN 250 MG TABLET PO SCH (09:22)
[2021-12-31] MEDS: ASPIRIN EC 81 MG TABLET PO SCH (09:22)
[2021-12-31] MEDS: HEPARIN 5,000 UNIT/1 ML VIAL SUBCUT SCH ×2 (09:23→21:17)
[2021-12-31] MEDS: carvediloL 3.125 MG TABLET PO SCH ×2 (09:23→21:17)
[2021-12-31] MEDS: lisinopriL 10 MG TABLET PO SCH (09:24)
[2021-12-31] MEDS: cefTRIAXone 1,000 MG in SODIUM CHLORIDE 0.9% 100 ML IV SCH (20:40)
[2021-12-31] MEDS: ROSUVASTATIN 20 MG TABLET PO SCH (21:17)
[2022-01-01] MEDS: ALBUTEROL/IPRATROPIUM 3 ML NEB RESP TX SCH ×2 (00:18→07:26)
[2022-01-01 05:43] LABS: Basophils # 0.1 10*3/uL (0.0-0.2); Basophils % 0.6 % (0.0-0.8); Eosinophils # 0.3 10*3/uL (0.0-0.87); Eosinophils % 4.1 % (0.00-10.9); Hematocrit 45.6 VOL% (42.0-52.0); Hemoglobin 14.5 GM/DL (14.0-18.0); Immature Granulocytes % 0.4 %; Immature Granulocytes Absolute 0.03 #; Lymphocytes # 1.8 10*3/uL (1.4-4.0); Mean Corpuscular HGB Conc 31.8 GM/DL (32-36); Mean Corpuscular Volume 89.2 FL (87-102); Mean Platelet Volume 10.2 FL (9.6-12.0); Monocytes # 0.9 10*3/uL (0.11-0.8); Monocytes % 11.1 % (1.7-12.7); Neutrophils % 60.8 % (38.7-73.9); Platelet Count 180 T/CUMM (130-400); Red Blood Count 5.11 MC/CUMM (3.8-5.5); Red Cell Distribution Width 13.9 % (9.3-17.3); White Blood Count 7.8 T/CUMM (4-12)
[2022-01-01 06:02] LABS: Calcium 8.8 MG/DL (8.5-10.1); Osmolality,Calculated 275.5 MOS/KG (273-304); Potassium 3.6 MMOL/L (3.5-5.1)
[2022-01-01] MEDS: carvediloL 3.125 MG TABLET PO SCH (09:00)
[2022-01-01] MEDS: lisinopriL 10 MG TABLET PO SCH (09:00)
[2022-01-01] MEDS: FUROSEMIDE 40 MG TABLET PO SCH (09:10)
[2022-01-01] MEDS: BISACODYL 5 MG TABLET PO SCH (09:10)
[2022-01-01] MEDS: PANTOPRAZOLE 40 MG TABLET PO SCH (09:10)
[2022-01-01] MEDS: HEPARIN 5,000 UNIT/1 ML VIAL SUBCUT SCH (09:10)
[2022-01-01] MEDS: POTASSIUM CHLORIDE 10 MEQ TABLET PO SCH (09:10)
[2022-01-01] MEDS: AZITHROMYCIN 250 MG TABLET PO SCH (09:10)
[2022-01-01] MEDS: ASPIRIN EC 81 MG TABLET PO SCH (09:10)
[2022-01-01] MEDS: guaiFENesin/DM ER 600-30 MG TABLET PO PRN (09:10)
[2022-01-01 11:41] VITALS: BP 121/71
[2022-01-03 13:17] LABS: Mycoplasma pneumoniae Ab Inter SEE COMMENTS; Mycoplasma pneumoniae Ab, IgG Positive (Negative); Mycoplasma pneumoniae Ab, IgM Negative (Negative)
== END 2022-01-01 12:58 | disposition home or self-care (01) ==
LOC: N.ED 13:17 → N.EDINP 13:17 → SUATTDRO 18:59 → N.5E 19:29
PROVIDERS: ADMIT Internal Medicine; ATTEND Internal Medicine